=== PATIENT | female | born 1945 | race American Indian/Alaskan Native ===

== ENCOUNTER 2016-09-22 12:34 | Inpatient (IN) | payer MEDICARE, OTHER ==
[2016-09-22 12:41] VITALS: BMI 30.8
[2016-09-22] MEDS ORDERED: Piperacillin/Tazobact 3.375 gm 100 ML IVPB STA (12:56)
[2016-09-22] MEDS ORDERED: Vancomycin 1gm in NS 250ml 250 ML IVPB STA (12:56)
[2016-09-22 13:30] LABS: ADD MANUAL DIFF? NO
[2016-09-22 13:48] LABS: ALKALINE PHOSPHATASE 85 U/L (38-133); ALT/SGPT 24 U/L (7-56); AST/SGOT 23 U/L (15-39); BILIRUBIN,TOTAL 0.6 mg/dL (0.2-1.3); BLOOD UREA NITROGEN 10 mg/dL (7-21); CALCIUM 8.5 mg/dL (8.4-10.5); CARBON DIOXIDE 29 mmol/L (21-33); CHLORIDE 101 mmol/L (98-107); GFR AFRICAN-AMERICAN > 60; GLUCOSE,RANDOM 106 mg/dL (70-110); POTASSIUM 3.3 mmol/L (3.6-5.0); SODIUM 136 mmol/L (132-148); TOTAL PROTEIN 6.8 g/dL (5.8-8.3)
[2016-09-22 13:50] LABS: BASO # 0.01 K/mm3 (0.0-2.0); BASO % 0.1 % (0.0-3.0); EOS % 0.4 % (1.5-5.0); GRAN # 7.07 (1.4-6.5); GRAN % 78.6 % (50.0-68.0); HEMATOCRIT 39.9 % (36.0-48.0); LYMPH # 1.1 (1.2-3.4); LYMPH % 12.2 % (22.0-35.0); MEAN CORPUSCULAR HEMOGLOBIN 28.6 pg (25.0-35.0); MEAN CORPUSCULAR HGB CONC 34.1 g/dl (31.0-37.0); MEAN PLATELET VOLUME 10.6 fl (7.0-11.0); MONO # 0.8 (0.1-0.6); MONO % 8.7 % (1.0-6.0); PLATELET COUNT 333 10^3/uL (120.0-450.0); RED CELL DISTRIBUTION WIDTH 13.3 % (11.5-14.5)
[2016-09-22 13:55] LABS: INR 1.7 (0.93-1.08); PARTIAL THROMBOPLASTIN TIME 34.2 Seconds (23.7-30.8)
--- NOTE | 2016-09-22 14:28 | ED PDOC ---
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 Ulcer is on located on the right ankle. Patient is on Coumadin for previous dvt. Patient reports no fevers or any other complaints at this time. does not request pain meds in er. Symptom Onset: Gradual Symptom Course: Unchanged Activities at Onset: Rest Modifying Factors (Text): none Context: Home Associated Symptoms (Text): none Past Medical History - Provider Review Nursing Documentation Reviewed: Yes - Cardiac Hx Cardiac Disorders: Yes Hx Hypertension: Yes - Pulmonary Hx Respiratory Disorders: Yes Hx Chronic Obstructive Pulmonary Disease (COPD): Yes - Neurological Hx Neurological Disorder: Yes Hx Dizziness: Yes (HAD HEAD INJURY) - HEENT Hx HEENT Disorder: No - Renal Hx Renal Disorder: No - Endocrine/Metabolic Hx Endocrine Disorders: No - Hematological/Oncological Hx Blood Transfusions: No Hx Blood Transfusion Reaction: No - Integumentary Hx Dermatological Disorder: Yes (NH WOUND TO RIGHT MALLEOLAR AREA.SKIN DARKENING.EDEMA PAIN,RED) - Musculoskeletal/Rheumatological Hx Musculoskeletal Disorders: Yes Hx Falls: Yes - Gastrointestinal Hx Gastrointestinal Disorders: No - Genitourinary/Gynecological Hx Genitourinary Disorders: Yes (ECTOPIC PRENANCY) - Psychiatric Hx Psychophysiologic Disorder: No Hx Substance Use: No - Anesthesia Hx Anesthesia Reactions: No Hx Malignant Hyperthermia: No Family/Social History - Physician Review Nursing Documentation Reviewed: Yes Family/Social History: No Known Family HX Smoking Status: Former Smoker Hx Alcohol Use: No Hx Substance Use: No Allergies/Home Meds Allergies/Adverse Reactions: Allergies No Known Allergies Allergy (Verified 09/22/16 12:41) Home Medications: Home Meds Medication Instructions Recorded Confirmed Valsartan/Hydrochlorothiazide 1 each PO DAILY 03/27/16 09/22/16 [Diovan Hct 320-25 mg Tablet] Warfarin [Coumadin] 5 mg PO DAILY 03/27/16 09/22/16 Furosemide [Lasix] 0 mg PO DAILY 09/22/16 09/22/16 Review of Systems - Physician Review All systems were reviewed & negative as marked: Yes - Review of Systems Constitutional: absent: Fevers Respiratory: absent: SOB Skin: Ulcer Physical Exam Vital Signs Reviewed: Yes Vital Signs Temp Pulse Resp BP Pulse Ox 09/22/16 13:41 79 18 115/69 96 09/22/16 12:41 98.2 F 87 16 117/72 95 Temperature: Afebrile Blood Pressure: Normal Pulse: Regular Respiratory Rate: Normal Appearance: Positive for: Well-Appearing, Non-Toxic, Comfortable Pain Distress: None Mental Status: Positive for: Alert and Oriented X 3 - Systems Exam Head: Present: Atraumatic, Normocephalic Pupils: Present: PERRL Extroacular Muscles: Present: EOMI Conjunctiva: Present: Normal Mouth: Present: Moist Mucous Membranes Neck: Present: Normal Range of Motion Respiratory/Chest: Present: Clear to Auscultation, Good Air Exchange. No: Respiratory Distress, Accessory Muscle Use Cardiovascular: Present: Regular Rate and Rhythm, Normal S1, S2. No: Murmurs Abdomen: Present: Normal Bowel Sounds. No: Tenderness, Distention, Peritoneal Signs Upper Extremity: Present: Normal Inspection. No: Cyanosis, Edema Lower Extremity: Present: Swelling, Other ((+)diminished pulse 1+ dp). No: Edema Neurological: Present: GCS=15, CN II-XII Intact, Speech Normal Skin: Present: Other (3 cm ulcer on right ankle with purulent discharge ) Psychiatric: Present: Alert, Oriented x 3, Normal Insight, Normal Concentration Medical Decision Making ED Course and Treatment: 09/22/16 14:26 Impression: 71 year old female with worsening infected ulcer on right ankle. Differential Diagnosis included but are not limited to: infected ulcer r/o osteo. pt with known h/o of chronic pvd, and dvt on warfarin. in er, leg swollen with ulcer to right ankle. Plan: -- Radiology right ankle -- Labs -- Vancomycin, Zosyn -- Reassess and disposition Progress Notes: XRay of right ankle: Creator : Jose Fuller MD IMPRESSION: Normal right ankle radiographs. case discussed with dr fuentes accepts for iv antibiotics. - Lab Interpretations Lab Results: 09/22/16 13:20 09/22/16 13:20 Lab Results 09/22/16 13:20: WBC 9.0, RBC 4.75, Hgb 13.6, Hct 39.9, MCV 84.0, MCH 28.6, MCHC 34.1, RDW 13.3, Plt Count 333, MPV 10.6, Gran % 78.6 H, Lymph % (Auto) 12.2 L, Elk % (Auto) 8.7 H, Eos % (Auto) 0.4 L, Baso % (Auto) 0.1, Gran # 7.07 H, Lymph # 1.1 L, Elk # 0.8 H, Eos # 0.0, Baso # 0.01, ESR 10, PT 18.4 H, INR 1.70 H, APTT 34.2 H, Sodium 136, Potassium 3.3 L, Chloride 101, Carbon Dioxide 29, Anion Gap 9 L, BUN 10, Creatinine 1.0, Est GFR ( Amer) > 60, Est GFR (Non-Af Amer) 55, Random Glucose 106, Calcium 8.5, Total Bilirubin 0.6, AST 23, ALT 24, Alkaline Phosphatase 85, C-React Prot High Sens 9.20 H, Total Protein 6.8, Albumin 3.4, Globulin 3.4, Albumin/Globulin Ratio 1.0 L - RAD Interpretation Radiology Orders: 09/22/16 12:56 ANKLE RIGHT 3 VIEWS ROUTINE [RAD] Stat - Medication Orders Current Medication Orders: Enoxaparin Sodium (Lovenox) 70 mg SC HS ELISEO PRN Reason: Protocol Last Admin: 09/22/16 21:17 Dose: Home Med (Home Med) 1 unit OD ACB ELISEO Meropenem 1g/NS 100mL IVPB (Meropenem 1g/Ns 100ml Ivpb) 100 mls @ 100 mls/hr IVPB Q12H ELISEO PRN Reason: Protocol Stop: 10/02/16 06:01 Last Admin: 09/23/16 05:44 Dose: 100 MLS/HR eMAR Start Stop Document 09/23/16 05:44 KTB (Rec: 09/23/16 05:45 KTB [id number]) Intravenous Solution Start Date 09/23/16 Start Time 05:44 End Date 09/23/16 End time 06:28 Total Infusion Time 44 Vancomycin HCl (Vancomycin 1gm) 250 mls @ 167 mls/hr IVPB Q12H ELISEO PRN Reason: Protocol Stop: 10/01/16 05:31 Last Admin: 09/23/16 06:26 Dose: 167 MLS/HR eMAR Start Stop Document 09/23/16 06:26 KTB (Rec: 09/23/16 06:27 KTB [id number]) Intravenous Solution Start Date 09/23/16 Start Time 06:27 End Date 09/23/16 End time 07:57 Total Infusion Time 90 Sodium Chloride (Sodium Chloride 0.45%) 1,000 mls @ 80 mls/hr IV .[id number] ELISEO Stop: 09/25/16 12:00 Last Admin: 09/23/16 09:50 Dose: 80 MLS/HR eMAR Start Stop Document 09/23/16 09:50 RV (Rec: 09/23/16 09:50 RV [id number]) Intravenous Solution Start Date 09/23/16 Start Time 09:50 Potassium Chloride (K-Dur 20 Meq Er Tab) 20 meq PO 0800 ELISEO Last Admin: 09/23/16 09:49 Dose: 20 MEQ Valsartan (Diovan) 320 mg PO DAILY ELISEO Last Admin: 09/23/16 09:49 Dose: 320 MG Discontinued Medications Enoxaparin Sodium (Lovenox) 70 mg SC Q24H ELISEO PRN Reason: Protocol Last Admin: 09/22/16 20:18 Dose: 70 MG Subcutaneous Administrations Document 09/22/16 20:18 KTB (Rec: 09/22/16 20:20 KTB [id number]) Injection Site MAR Injection Site Left Abdomen Charges for Administration # of Subcutaneous Administrations 1 Piperacillin Sod/Tazobactam Sod (Zosyn 3.375 In Ns 100ml) 100 mls @ 200 mls/hr IVPB STAT STA PRN Reason: Protocol Stop: 09/22/16 13:25 Last Admin: 09/22/16 13:25 Dose: 200 MLS/HR eMAR Start Stop Document 09/22/16 13:25 EQ (Rec: 09/22/16 13:35 EQ [facility] [id number]) Intravenous Solution Start Date 09/22/16 Start Time 13:25 Vancomycin HCl (Vancomycin 1gm) 250 mls @ 167 mls/hr IVPB STAT STA PRN Reason: Protocol Stop: 09/22/16 14:25 Last Admin: 09/22/16 14:20 Dose: 167 MLS/HR eMAR Start Stop Document 09/22/16 14:20 EQ (Rec: 09/22/16 14:43 EQ [facility] [id number]) Intravenous Solution Start Date 09/22/16 Start Time 14:20 Pneumococcal Polyvalent Vaccine (Pneumovax 23 Vaccine) 0.5 ml IM .ONCE ONE Stop: 09/22/16 15:56 Last Admin: 09/23/16 05:50 Dose: Comments: had < 5trs ago - Sravaniibe Statement The provider has reviewed the documentation as recorded by the Capo Fuentes training under Deric Navas All medical record entries made by the Capo were at my direction and personally dictated by me. I have reviewed the chart and agree that the record accurately reflects my personal performance of the history, physical exam, medical decision making, and the department course for this patient. I have also personally directed, reviewed, and agree with the discharge instructions and disposition. Disposition/Present on Arrival - Present on Arrival Any Indicators Present on Arrival: No History of DVT/PE: No History of Uncontrolled Diabetes: No Urinary Catheter: No History of Decub. Ulcer: No History Surgical Site Infection Following: None - Disposition Have Diagnosis and Disposition been Completed?: Yes Diagnosis: Peripheral vascular disease, Infected ulcer of skin Disposition: HOSPITALIZED Disposition Time: 03:00 Condition: FAIR
--- NOTE | 2016-09-22 14:56 | RAD ---
PROCEDURE: Right Ankle Radiographs. HISTORY: ankle ulcer COMPARISON: None FINDINGS: BONES: Normal. No fracture. JOINTS: Normal. No osteoarthritis. Ankle mortise maintained. Talar dome intact SOFT TISSUES: Normal. OTHER FINDINGS: None. IMPRESSION: Normal right ankle radiographs.
[2016-09-22 15:20] LABS: ERYTHROCYTE SEDIMENTATION RATE 10 mm/hr (0.0-20.0)
[2016-09-22] MEDS ORDERED: Pneumococcal 23-Valent Vaccine IM ONE (15:55)
[2016-09-22] MEDS: Potassium Chloride 20 mEq ER Tab PO SCH (17:15)
--- NOTE | 2016-09-22 17:15 | US ---
HISTORY: Leg pain and swelling. Evaluate for DVT PHYSICIAN(S): Silver Dennis MD. TECHNIQUE: Duplex sonography and color-flow Doppler with graded compression were used to evaluate the deep venous systems of both lower extremities. The exam is limited by edema. FINDINGS: The visualized deep venous systems of both lower extremities are sonographically normal and compressible. Normal wave forms and augmentation are seen. There is no sonographic evidence for deep venous thrombosis in the visualized segments of both lower extremities. IMPRESSION: No sonographic evidence for deep venous thrombosis in the visualized segments of both lower extremities.
[2016-09-22] MEDS ORDERED: Enoxaparin 80 mg Syringe SC SCH (19:00)
[2016-09-22] MEDS ORDERED: Enoxaparin 80 mg Syringe SC ONE (20:00)
[2016-09-22] MEDS: Enoxaparin 80 mg Syringe SC SCH (21:17)
[2016-09-23] MEDS: Meropenem 1g/NS 100mL IVPB 100 ML IVPB SCH ×2 (05:44→17:19)
[2016-09-23] MEDS: Vancomycin 1gm in NS 250ml 250 ML IVPB SCH ×2 (06:26→16:48)
[2016-09-23 07:14] LABS: ADD MANUAL DIFF? NO
[2016-09-23 07:25] LABS: BASO # 0.01 K/mm3 (0.0-2.0); BASO % 0.1 % (0.0-3.0); EOS # 0.1 (0.0-0.7); EOS % 0.9 % (1.5-5.0); GRAN # 5.55 (1.4-6.5); HEMATOCRIT 39.9 % (36.0-48.0); LYMPH # 0.7 (1.2-3.4); LYMPH % 10.3 % (22.0-35.0); MEAN CELL VOLUME 84.4 fL (80.0-105.0); MEAN CORPUSCULAR HEMOGLOBIN 28.8 pg (25.0-35.0); MEAN CORPUSCULAR HGB CONC 34.1 g/dl (31.0-37.0); MEAN PLATELET VOLUME 10.7 fl (7.0-11.0); MONO # 0.7 (0.1-0.6); MONO % 9.7 % (1.0-6.0); PLATELET COUNT 306 10^3/uL (120.0-450.0); RED CELL DISTRIBUTION WIDTH 13.4 % (11.5-14.5)
[2016-09-23 07:40] LABS: ALKALINE PHOSPHATASE 69 U/L (38-133); ALT/SGPT 33 U/L (7-56); AST/SGOT 19 U/L (15-39); BILIRUBIN,TOTAL 0.6 mg/dL (0.2-1.3); BLOOD UREA NITROGEN 8 mg/dL (7-21); CALCIUM 8.5 mg/dL (8.4-10.5); CARBON DIOXIDE 30 mmol/L (21-33); CHLORIDE 104 mmol/L (98-107); GFR AFRICAN-AMERICAN > 60; GLUCOSE,RANDOM 93 mg/dL (70-110); POTASSIUM 3.8 mmol/L (3.6-5.0); SODIUM 141 mmol/L (132-148); TOTAL PROTEIN 6.5 g/dL (5.8-8.3)
--- NOTE | 2016-09-23 09:28 | US ---
PROCEDURE: Lower extremity KUMAR exam HISTORY: Severe peripheral vascular disease. Nonhealing ulcer right lateral ankle. Previous right SFA stent in March 2016 PHYSICIAN(S): Silver Dennis MD. FINDINGS: The right resting ABIs severely abnormal, 0.44. The left resting KUMAR is moderately abnormal, 0.70. The brachial systolic pressures are symmetric. The high thigh pressures and waveforms are relatively normal. The right calf PVR waveform is severely blunted. There is a 77 mm gradient across the right knee. This is consistent with right SFA and/ popliteal occlusive disease. The right SFA stent is likely occluded. The right distal waveforms are essentially flat There is a 90 mm gradient across the left knee. The left calf PVR waveform does not augment. This is consistent with left SFA, popliteal, and or trifurcation disease. The left ankle and metatarsal waveforms are moderately blunted but pulsatile IMPRESSION: 1. Severely abnormal right KUMAR at rest. 2. Occluded right SFA/popliteal stent. The right distal waveforms are essentially flat
--- NOTE | 2016-09-23 09:45 | HP ---
The patient is a 71-year-old black female with history of COPD, tobacco abuse, peripheral vascular di sease. The patient was being seen by Dr. Ya for a right lateral malleolar ulcer. She was doing well. She also has history of hypertension and history of chronic atrial fibrillation. She was on p .o. antibiotics in outpatient, going to the wound care clinic when she developed a nonhealing large u lceration of the right lateral malleolus with possible osteomyelitis, and admitted to the hospital fo r IV antibiotics and workup. PHYSICAL EXAMINATION: GENERAL: Shows a well-developed, well-nourished black female in no apparent distress. HEENT: Essentially within normal limits. HEART: Regular sinus rhythm. No S3, no murmurs. CHEST: Showed decreased breath sounds bilaterally. No wheezing, rhonchi, or rales. ABDOMEN: Benign. EXTREMITIES: Without cyanosis, clubbing, or edema. There are decreased pulsations bilaterally, and the patient has a large, greater than 5-cm shallow ulceration, of the right lateral malleolus with ex udate. There is no cellulitis and no swelling of the legs. NEUROLOGIC: Grossly intact. IMPRESSION: Peripheral vascular disease, chronic atrial fibrillation on Coumadin, hypertension, late ral malleolar ulcer, possible osteomyelitis. Terrance Main MD cc: [id number] TT: 09/23/2016 09:44:22 jn
[2016-09-23] MEDS: Potassium Chloride 20 mEq ER Tab PO SCH (09:49)
[2016-09-23] MEDS: Sodium Chloride 0.45% 1,000 ML IV SCH (09:50)
--- NOTE | 2016-09-23 10:41 | CON ---
DATE: 09/23/2016 CHIEF COMPLAINT/HISTORY OF PRESENT ILLNESS: This is an alert, functional 71- year-old black female with a deteriorating ischemic ulceration on the lateral aspect of the right malleolus. I know the patient from the Fall of 2016. The ulcer was present but smaller, and at that time she underwent an arteriogram with placement of a right SFA/popliteal stent. There was only 1-vessel runoff. Her cardiovascular risk factors include smoking and hypertension. She has been followed in the wound care center by Dr. Ya. Unfortunately she continued to smoke. Her pulse exam on the right demonstrates a palpable but somewhat weak right femoral pulse. The right popliteal and distal pulses are not palpable. Her KUMAR /PVR exam demonstrates a severely abnormal right KUMAR, 0.44. There is a significant gradient across the right knee, and the right calf, ankle, and metatarsal waveforms were essentially flat. This is consistent with occlusion of the distal right SFA/popliteal stent. RECOMMENDATIONS: The endovascular intervention in 03/2016, has had very limited durability. An arteriogram will be performed, and attempt at recanalization of the occluded segments if possible. Another alternative would be a right femoral-posterior tibial bypass, though this would involve greater morbidity and/or mortality. Both options were discussed with the patient. She understands the risks and wishes to proceed. Silver Dennis MD cc: [id number] TT: 09/23/2016 10:40:36 Confirmation # [id number] Dictation # [id number] jn MTDD
[2016-09-23] MEDS: Oxycodone/Acetaminophen 2.5/325 mg Tab PO PRN ×2 (13:17→20:29)
--- NOTE | 2016-09-23 15:25 | CON ---
DATE: 09/23/2016 The patient seen in room 361, bed 2. CHIEF COMPLAINT: Right ankle ulcer times several days. HISTORY OF PRESENT ILLNESS: A 71-year-old female known to me from previous admissions with a history of peripheral vascular disease, history of right ankle ulcer and osteomyelitis in the past, was greer judith and a history of DVT of the left lower extremity, history of chronic obstructive lung disease, wh o is admitted now with a large ulcer, an infected ulcer on the right lateral ankle. REVIEW OF SYSTEMS: Reveals the patient has no fevers, no chills, no chest pain, no hemoptysis. PAST MEDICAL HISTORY: Significant for the right lateral malleolar right ankle ulcer and osteomyeliti s and peripheral vascular disease, hypertension, history of a left lower extremity DVT, history of ch ronic obstructive lung disease and history of patient being on Coumadin, a long time smoker. PAST SURGICAL HISTORY: Significant for an ectopic . ALLERGIES: The patient has no known allergies. MEDICATIONS: Reviewed. PHYSICAL EXAMINATION: VITAL SIGNS: Temperature is 97, blood pressure is 102/60, respiratory rate of 20, heart rate of 75. HEENT: Unremarkable. NECK: Supple. LUNGS: Have decreased breath sounds. HEART: Normal S1, S2. ABDOMEN: Soft, nontender, no organomegaly, no rebound, no guarding, no masses. EXTREMITIES: The ankle shows a large sized ulcer, approximately 7-8 cm in diameter, deep with erythe ma and ulcers are intact. LABORATORY EXAMINATION: Reviewed. Reveals a white count of 7, hemoglobin of 13, platelets of 306. Sed rate is 16. Coagulation is noted. BUN of 8, creatinine of 0.9. IMAGING: Reveals the patient had an ultrasound, severely abnormal right KUMAR at rest, occluded right SFA and popliteal stent, right distal waveforms are essentially flat, read by Dr. Silver Dennis. Emergency Room chart is reviewed. Consultation with Dr. Silver Dennis is reviewed. The venous Doppler s are negative and endovascular intervention in 03/2016 and arteriogram will be performed according t o Dr. Silver Dennis. Another alternative would be a right femoral posterior tibial bypass. Dr. Rachelle johnson's history and physical examination is reviewed. He states the patient has peripheral vascular di sease, chronic atrial fibrillation on Coumadin, hypertension, lateral malleolar ulcer, possible osteo myelitis. ASSESSMENT AND PLAN: A 71-year-old female with severe peripheral arterial disease, hypertension, his tory of deep venous thrombosis of the left lower extremity, history of atrial fibrillation on Coumadi n, chronic obstructive pulmonary disease and ectopic . Now with right ankle ulcer, infected , with severe peripheral artery disease with a gram-negative tiffanie and corynebacterium species from the culture of the ankle. Blood cultures are negative. We will treat the patient with vancomycin and m eropenem and pending further culture results and imaging to rule out underlying osteomyelitis and lexa l follow closely with you. Byron Corbin MD cc: [id number] TT: 09/23/2016 15:24:30 Confirmation # [id number] Dictation # [id number] en
[2016-09-23] MEDS: Enoxaparin 80 mg Syringe SC SCH (21:29)
[2016-09-24] MEDS: Sodium Chloride 0.45% 1,000 ML IV SCH ×3 (04:57→22:45)
[2016-09-24] MEDS: Meropenem 1g/NS 100mL IVPB 100 ML IVPB SCH ×3 (04:59→18:30)
[2016-09-24] MEDS: Vancomycin 1gm in NS 250ml 250 ML IVPB SCH ×2 (05:29→19:57)
--- NOTE | 2016-09-24 09:04 | PN ---
DATE: 09/24/2016 A 71-year-old black female admitted to the hospital with a right lateral malleolar ulcer, nonhealing, possible osteomyelitis, for IV antibiotics. Evaluation included evaluation by Dr. Silver Dennis with a Doppler. Found to have a blockage of the right lower extremity. He is performing an arteriogram i n attempt to recanalize the occluded segments if possible. He also is considering a right femoral po sterior tibial bypass. However, it is more invasive. The patient has a history of an endovascular i ntervention in 03/2016, which has deteriorated. The ABIs are severely abnormal on the right at 0.44 and significant across the right knee and the right calf, ankle and metatarsal waveforms are es sentially flat consistent with occlusion of the distal right SFA, popliteal stent. The patient is on IV antibiotics, wound care and elevation. For further evaluation and possible intervention. Terrance Main MD cc: [id number] TT: 09/24/2016 09:03:03 Confirmation # [id number] Dictation # [id number] en
[2016-09-24] MEDS: Home Med 1 UNIT OD SCH (09:51)
[2016-09-24] MEDS: Potassium Chloride 20 mEq ER Tab PO SCH (09:51)
[2016-09-24] MEDS ORDERED: Iodixanol 320 mg/ml 150 ml Bottle IV ONE (10:13)
[2016-09-24] MEDS ORDERED: Iodixanol 320 MG/ML 200 ML BOTTLE IV ONE (10:13)
--- NOTE | 2016-09-24 10:44 | PN ---
DATE: 09/24/2016 The patient is in bed in no acute distress, nontoxic. On exam, temperature is 98, blood pressure is 120/60, respiratory rate of 20, heart rate of 87. EXAMINATION OF HENT: Unremarkable. NECK: Supple. LUNGS: Have decreased breath sounds. HEART EXAMINATION: Normal S1, S2. ABDOMINAL EXAMINATION: Soft, nontender. Examination of the ankles has not changed. Large ulcer. LABORATORY EXAMINATION: Reveals a white count is 7, hemoglobin of 13. Sed rate is 16. Coagulation is noted in a BUN of 8, creatinine of 0.9. Procalcitonin is less than 0.05. Ankle culture is Entero bacter cloacae and Corynebacterium species. Enterobacter is pansensitive. Sensitive to Cipro, sensi tive to cefepime, and ceftriaxone. It is resistant to cefazolin. Corynebacterium has no sensitivity . Review of the orders reveals the patient to be on meropenem and vancomycin. Dr. Main's note is reviewed. ASSESSMENT AND PLAN: This is a 71-year-old female with severe peripheral arterial disease, hypertens ion, history of deep venous thrombosis, lower extremity; history of atrial fibrillation on Coumadin, chronic obstructive lung disease, history of ectopic . Admitted in this admission with a la rge right ankle ulcer which is infected with Enterobacter cloacae and Corynebacterium, with poor vasc ular supply, severe arterial disease, and currently on vancomycin and meropenem. Vascular consultati on by Dr. Silver Dennis is reviewed. Will follow closely with you. Byron Corbin MD cc: [id number] TT: 09/24/2016 10:43:20 Confirmation # [id number] Dictation # [id number] brenda
[2016-09-24] MEDS ORDERED: Lidocaine 2% Inj (20ml) ONE (10:58)
[2016-09-24] MEDS ORDERED: Nitroglycerin 50mg in D5W 250 ML IV ONE (10:59)
[2016-09-24] MEDS ORDERED: Midazolam 2 MG/2 ML VIAL ONE ×2 (12:01→12:19)
--- NOTE | 2016-09-24 12:13 | CP.PCM.CON ---
<Lon Arias - Last Filed: 09/24/16 12:08> History of Present Illness - History of Present Illness History of Present Illness: 70 year old female patient with PMHx of HTN, peripheral vascular disease was seen at bedside this morning after request for podiatry consultation. Patient is well known to Dr. Felton MANN. Patient presents with non-healing ulceration to lateral aspect of Right ankle which was being treated at the woundcare clinic with improvement until 2 weeks ago when the wound started getting larger. Patient states that she had the ulceration for along time and the wound is not healing. Patient denies of any recent trauma to the wound. Patient denies of any N/V/F/C or SOB today Past Patient History - Past Social History Smoking Status: Former Smoker - CARDIAC Hx Cardiac Disorders: Yes Hx Hypertension: Yes - PULMONARY Hx Respiratory Disorders: Yes Hx Chronic Obstructive Pulmonary Disease (COPD): Yes - NEUROLOGICAL Hx Neurological Disorder: Yes Hx Dizziness: Yes (HAD HEAD INJURY) - HEENT Hx HEENT Problems: No - RENAL Hx Chronic Kidney Disease: No - ENDOCRINE/METABOLIC Hx Endocrine Disorders: No - HEMATOLOGICAL/ONCOLOGICAL Hx Blood Transfusions: No Hx Blood Transfusion Reaction: No - INTEGUMENTARY Hx Dermatological Problems: Yes (NH WOUND TO RIGHT MALLEOLAR AREA.SKIN DARKENING.EDEMA PAIN,RED) - MUSCULOSKELETAL/RHEUMATOLOGICAL Hx Musculoskeletal Disorders: Yes Hx Falls: Yes - GASTROINTESTINAL Hx Gastrointestinal Disorders: No - GENITOURINARY/GYNECOLOGICAL Hx Genitourinary Disorders: Yes (ECTOPIC PRENANCY) - PSYCHIATRIC Hx Psychophysiologic Disorder: No Hx Substance Use: No - SURGICAL HISTORY Hx Surgeries: (picc in and out) - ANESTHESIA Hx Anesthesia Reactions: No Hx Malignant Hyperthermia: No Meds Allergies/Adverse Reactions: Allergies Allergy/AdvReac Type Severity Reaction Status Date / Time No Known Allergies Allergy Verified 09/22/16 12:41 - Medications Medications: Current Medications Diphenhydramine HCl (Benadryl) 50 mg PO HS PRN PRN Reason: Insomnia Last Admin: 09/23/16 23:16 Dose: 50 mg Enoxaparin Sodium (Lovenox) 70 mg SC HS ELISEO PRN Reason: Protocol Last Admin: 09/23/16 21:29 Dose: 70 mg Home Med (Home Med) 1 unit OD ACB ELISEO Last Admin: 09/24/16 09:51 Dose: Not Given Meropenem 1g/NS 100mL IVPB (Meropenem 1g/Ns 100ml Ivpb) 100 mls @ 100 mls/hr IVPB Q12H ELISEO PRN Reason: Protocol Stop: 10/02/16 06:01 Last Admin: 09/24/16 04:59 Dose: 100 mls/hr Vancomycin HCl (Vancomycin 1gm) 250 mls @ 167 mls/hr IVPB Q12H ELISEO PRN Reason: Protocol Stop: 10/01/16 05:31 Last Admin: 09/24/16 05:29 Dose: 167 mls/hr Sodium Chloride (Sodium Chloride 0.45%) 1,000 mls @ 80 mls/hr IV .[id number] [facility] Stop: 09/25/16 12:00 Last Admin: 09/24/16 09:52 Dose: 80 mls/hr Oxycodone/Acetaminophen (Percocet 2.5/325 Mg Tab) 1 tab PO Q4H PRN PRN Reason: Pain, moderate (4-7) Last Admin: 09/23/16 20:29 Dose: 1 tab Potassium Chloride (K-Dur 20 Meq Er Tab) 20 meq PO 0800 [facility] Last Admin: 09/24/16 09:51 Dose: 20 meq Valsartan (Diovan) 320 mg PO DAILY [facility] Last Admin: 09/24/16 09:51 Dose: 320 mg Physical Exam - Constitutional Appears: Well, Non-toxic, No Acute Distress - Extremities Exam Additional comments: Additional comments: Right lower extremity exam DERM: Open ulceration noted to lateral aspect of right ankle measuring 7cm x 5cm x 0.4cm with 100% fibrotic base. Serous drainage is noted from the wound. Necrotic eschar noted to wound margins with 0.2cm thickness. Mild erythema noted around the wound less than 2 cm. No probe to bone VASC: Non-palpable DP and PT, AUTOMATIC VULCANIZING OPERATOR is less than 3 seconds to all digits NEURO: Gross sensation intact ORTHO: Pain on palpation to right foot involving ankle - Neurological Exam Neurological exam: Alert, Oriented x3 - Psychiatric Exam Psychiatric exam: Normal Affect, Normal Mood - Skin Skin Exam: Normal Color, Warm Results - Vital Signs Recent Vital Signs: Last Vital Signs Temp 97.5 F L 09/24/16 08:00 Pulse 85 09/24/16 08:00 Resp 20 09/24/16 08:00 BP 128/64 09/24/16 08:00 Pulse Ox 97 09/24/16 08:00 - Labs Result Diagrams: 09/23/16 07:00 09/23/16 07:00 Labs: Laboratory Results - last 24 hr 09/23/16 06:30 Procalcitonin < 0.05 L Assessment & Plan - Assessment and Plan (Free Text) Assessment: 70 year old female patient with PMHx of HTN, PVD, LLE DVT presents with open ulceration to right ankle Plan: Patient was seen, evaluated with Dr. Ya Labs and vitals reviewed Iodosorb ordered to be applied to right ankle Dressing applied to right ankle using Betadine, 4x4 and kerlix Podiatry will continue to follow In-house <Pedro Pablo Ya - Last Filed: 09/24/16 17:17> Meds - Medications Medications: Current Medications Cadexomer Iodine (Iodosorb 0.9%) 0 ea TOP DAILY ELISEO Diphenhydramine HCl (Benadryl) 50 mg PO HS PRN PRN Reason: Insomnia Last Admin: 09/23/16 23:16 Dose: 50 mg Enoxaparin Sodium (Lovenox) 70 mg SC HS ELISEO PRN Reason: Protocol Last Admin: 09/23/16 21:29 Dose: 70 mg Home Med (Home Med) 1 unit OD ACB ELISEO Last Admin: 09/24/16 09:51 Dose: Not Given Meropenem 1g/NS 100mL IVPB (Meropenem 1g/Ns 100ml Ivpb) 100 mls @ 100 mls/hr IVPB Q12H ELISEO PRN Reason: Protocol Stop: 10/02/16 06:01 Last Admin: 09/24/16 04:59 Dose: 100 mls/hr Vancomycin HCl (Vancomycin 1gm) 250 mls @ 167 mls/hr IVPB Q12H ELISEO PRN Reason: Protocol Stop: 10/01/16 05:31 Last Admin: 09/24/16 05:29 Dose: 167 mls/hr Sodium Chloride (Sodium Chloride 0.45%) 1,000 mls @ 80 mls/hr IV .[id number] [facility] Stop: 09/25/16 12:00 Last Admin: 09/24/16 09:52 Dose: 80 mls/hr Oxycodone/Acetaminophen (Percocet 2.5/325 Mg Tab) 1 tab PO Q4H PRN PRN Reason: Pain, moderate (4-7) Last Admin: 09/23/16 20:29 Dose: 1 tab Potassium Chloride (K-Dur 20 Meq Er Tab) 20 meq PO 0800 [facility] Last Admin: 09/24/16 09:51 Dose: 20 meq Valsartan (Diovan) 320 mg PO DAILY [facility] Last Admin: 09/24/16 09:51 Dose: 320 mg Results - Vital Signs Recent Vital Signs: Last Vital Signs Temp 97.5 F L 09/24/16 14:10 Pulse 82 09/24/16 14:10 Resp 14 09/24/16 14:10 BP 143/76 09/24/16 14:10 Pulse Ox 97 09/24/16 08:00 - Labs Result Diagrams: 09/23/16 07:00 09/23/16 07:00 Labs: Laboratory Results - last 24 hr 09/24/16 16:40 Vancomycin Trough 13.6 H Attending/Attestation - Attestation I have personally seen and examined this patient.: Yes I have fully participated in the care of the patient.: Yes I have reviewed all pertinent clinical information: Yes
--- NOTE | 2016-09-24 13:55 | VASCULAR ---
PROCEDURE: 1. Abdominal aortogram and bilateral lower extremity runoff with right selective views. 2. Distal right SFA and right popliteal artery CSI atherectomy and drug-eluting balloon angioplasty 3. Proximal right posterior tibial artery angioplasty HISTORY: Severe peripheral vascular disease. Smoker. Previous right SFA angioplasty and stent in 2015. Nonhealing ischemic right lateral heel ulcer. Evaluate for restenosis. PHYSICIAN(S): Silver Dennis M.D. TECHNIQUE: The relative risks and indications of the procedure were explained to the patient and consent obtained. The patient was hydrated prior to the procedure and the appropriate labs drawn. The patient was placed supine on the arteriogram table and the left groin prepped and draped in the usual sterile fashion. Conscious sedation and monitoring were provided throughout the procedure by a nurse. Via a left common femoral artery approach, a 5 [place]raini sheath was placed in the left groin. Through the sheath and over a guidewire, a 5 [place]i flush catheter was placed in the abdominal aorta at the level of the renal arteries and a PA DSA abdominal aortogram performed. The catheter was pulled down to the aortic bifurcation and bilateral oblique DSA pelvic arteriograms performed. Overlapping bilateral lower extremity DSA arteriograms were obtained from the inguinal ligaments to the ankles. A 0.035 angled Glidewire was advanced over the bifurcation and placed in the mid right SFA. A 6 [place]raini 65 cm destination sheath was placed in the mid right SFA. Heparin 6000 units IV and nitroglycerin in 250 mcg aliquots were given. The re- stenosis in the distal right SFA and critical tandem stenoses in the terminal right SFA and popliteal arteries were crossed with angled glidewire and 5 [place]i catheter.. Exchange was made for a 0.017 support guidewire. CS I atherectomy of the distal right SFA stent, terminal right SFA stenosis and mid right popliteal artery stenosis was performed with a 2.0 mm yusra next the right popliteal artery was dilated with a 4 mm drug-eluting balloon. The distal right SFA and right SFA stent were dilated with a 5.0 mm drug-eluting balloon. The moderate to severe stenosis at the origin of the right posterior tibial artery was dilated with a 3.0 x 4 cm balloon. Completion angiograms were obtained. The sheath was removed hemostasis obtained with a Perclose device. The patient tolerated the procedure well. FINDINGS: There are single renal arteries bilaterally which are widely patent and normal in appearance. The nephrograms are symmetric in appearance. The infrarenal abdominal aorta is widely patent without a radiographically significant stenosis. The aortic bifurcation is widely patent. The common and external iliac arteries are normal in appearance without a significant stenosis. The internal iliac arteries are patent bilaterally. Right lower extremity: The right common femoral artery is patent. The right profunda femoral artery is patent. The right superficial femoral artery is patent proximally. The self expanding stent in the distal right SFA is patent with mild to moderate in stent restenosis. There is a critical stenosis just beyond the distal stent. Is a 2nd critical stenosis in the mid right popliteal artery. There is severe right trifurcation and tibial occlusive disease. There is single vessel runoff via the large and continuous right posterior tibial artery. There is a moderate stenosis of the right posterior tibial artery origin.. There is significant right pedal occlusive disease. The plantar arch is intact. The right dorsalis pedis artery does not opacify. IMPRESSION: 1.Successful distal right SFA atherectomy and drug-eluting balloon angioplasty. 2. Successful right popliteal artery atherectomy and drug-eluting balloon angioplasty. 3. Successful proximal right posterior tibial artery angioplasty. 4. Severe right tibial and pedal occlusive disease. There is I vessel runoff via the right posterior tibial artery.
--- NOTE | 2016-09-24 17:55 | PN ---
DATE: 09/24/2016 A 71-year-old female seen at bedside for followup evaluation and management of an arterial gangrenous right ankle ulceration. I spoke with Dr. Silver Dennis today as the patient had undergone angiogram w here increased lower extremity perfusion was obtained. In an effort to maximize healing, the patient was scheduled for excisional debridement on Tuesday at 7:30 a.m. with an application of skin graft. So, we will keep the patient n.p.o. Tuesday and perform the procedure at 7:30 a.m. . The patient will be seen and followed daily until discharge. Pedro Pablo Ya DPM cc: [id number] TT: 09/24/2016 17:54:32 Confirmation # [id number] Dictation # [id number] tn
[2016-09-24] MEDS: Enoxaparin 80 mg Syringe SC SCH (22:05)
[2016-09-25] MEDS: Meropenem 1g/NS 100mL IVPB 100 ML IVPB SCH ×2 (05:14→17:25)
[2016-09-25] MEDS: Vancomycin 1gm in NS 250ml 250 ML IVPB SCH ×2 (05:57→18:25)
[2016-09-25] MEDS: Potassium Chloride 20 mEq ER Tab PO SCH (08:08)
[2016-09-25] MEDS: Home Med 1 UNIT OD SCH (08:08)
--- NOTE | 2016-09-25 10:39 | PN ---
DATE: 09/25/2016 A 71-year-old white female admitted to the hospital with a right lateral malleolar ulceration. The p atient is status post history of stent in the past who is status post angiogram and revision of stent by Dr. Silver Dennis with angioplasty. The patient has good runoff, but only 1 vessel into the foot. The patient's plan is to continue IV antibiotics, debridement and possible grafting of the ulcer in the next 3-4 days. The patient is also admonished to stop smoking. She is otherwise appropriate. REVIEW OF SYSTEMS: Unremarkable today. The patient is awake and oriented x 3. Terrance Main MD cc: [id number] TT: 09/25/2016 10:38:27 Confirmation # [id number] Dictation # [id number] tn
[2016-09-25] MEDS: Sodium Chloride 0.45% 1,000 ML IV SCH (11:54)
--- NOTE | 2016-09-25 14:10 | PN ---
DATE: 09/25/2016 The patient is in bed in no acute distress. Was seen earlier today, no fevers, no chills, tolerating the antibiotics well. PHYSICAL EXAMINATION: VITAL SIGNS: Temperature is 98, blood pressure is 140/60, respiratory rate of 18. HEENT: Unremarkable. NECK: Supple. LUNGS: Have decreased breath sounds. HEART: Normal S1, S2. ABDOMEN: Soft. LABORATORY EXAMINATION: Reveals a white count of 7, hemoglobin of 13, platelets of 306. The analytical chemistry teacher luis reveal the BUN of 8, creatinine of 0.9. Procalcitonin is less than 0.05. Vancomycin trough of 13.6. Microbiology reveals the patient has Enterobacter cloacae and corynebacterium from the ankle c ultures and Enterobacter cloacae is pansensitive. Review of the orders reveals the patient to be on meropenem and vancomycin. Dr. Main's note is reviewed. ASSESSMENT AND PLAN: A 71-year-old female with severe peripheral artery disease, hypertension, histo ry of deep venous thrombosis lower extremity, atrial fibrillation, chronic obstructive lung disease, history of ectopic with a large right ankle ulcer infected with Enterobacter cloacae and co rynebacterium with severe peripheral arterial disease. Currently on vancomycin and meropenem. Await ing for further vascular input. Dr. Ya's note is reviewed. We will follow closely with you. Byron Corbin MD cc: [id number] TT: 09/25/2016 14:10:11 Confirmation # [id number] Dictation # [id number] tn
[2016-09-25] MEDS: Enoxaparin 80 mg Syringe SC SCH (22:04)
[2016-09-25] MEDS: Oxycodone/Acetaminophen 2.5/325 mg Tab PO PRN (22:57)
[2016-09-26] MEDS: Vancomycin 1gm in NS 250ml 250 ML IVPB SCH ×2 (04:41→19:21)
[2016-09-26] MEDS: Meropenem 1g/NS 100mL IVPB 100 ML IVPB SCH ×2 (06:26→20:33)
[2016-09-26 10:26] LABS: URINE APPEARANCE CLEAR (CLEAR); URINE BILIRUBIN NEGATIVE (NEGATIVE); URINE BLOOD NEGATIVE (NEGATIVE); URINE COLOR LIGHT YELLOW (YELLOW); URINE GLUCOSE (UA) NEGATIVE (NEGATIVE); URINE KETONE NEGATIVE (NEGATIVE); URINE LEUKOCYTE ESTERASE NEGATIVE Leu/uL (NEGATIVE); URINE PROTEIN NEGATIVE mg/dL (<30 mg/dL); URINE UROBILINOGEN 0.2 E.U./dL (<1 E.U./dL)
[2016-09-26 10:39] LABS: ADD MANUAL DIFF? NO
[2016-09-26 10:43] LABS: BASO # 0.02 K/mm3 (0.0-2.0); BASO % 0.2 % (0.0-3.0); EOS # 0.2 (0.0-0.7); EOS % 1.8 % (1.5-5.0); GRAN # 6.87 (1.4-6.5); GRAN % 81.3 % (50.0-68.0); HEMATOCRIT 38.4 % (36.0-48.0); LYMPH % 11.5 % (22.0-35.0); MEAN CELL VOLUME 84.2 fL (80.0-105.0); MEAN CORPUSCULAR HEMOGLOBIN 28.7 pg (25.0-35.0); MEAN CORPUSCULAR HGB CONC 34.1 g/dl (31.0-37.0); MEAN PLATELET VOLUME 10.3 fl (7.0-11.0); MONO # 0.4 (0.1-0.6); MONO % 5.2 % (1.0-6.0); PLATELET COUNT 237 10^3/uL (120.0-450.0); RED CELL DISTRIBUTION WIDTH 13.4 % (11.5-14.5); WHITE BLOOD COUNT 8.5 10^3/ul (4.5-11.0)
[2016-09-26] MEDS: Home Med 1 UNIT OD SCH (11:12)
[2016-09-26] MEDS: Potassium Chloride 20 mEq ER Tab PO SCH (11:13)
--- NOTE | 2016-09-26 11:19 | RAD ---
HISTORY: or tomorrow COMPARISON: Comparison chest 03/27/2016 TECHNIQUE: Chest PA and lateral FINDINGS: LUNGS: Lung neumann are hyperinflated with flattened diaphragms and increased retrosternal airspace. Findings likely represent sequela of emphysema with upper lobe predominance however underlying COPD not excluded. There appears to be bibasilar atelectasis and scarring changes with either small effusions or chronic pleural thickening. PLEURA: No pneumothorax apparent. CARDIOVASCULAR: Heart size within range of normal. OSSEOUS STRUCTURES: Mild multilevel degenerative spondylosis of the thoracic spine VISUALIZED UPPER ABDOMEN: Normal. OTHER FINDINGS: None. IMPRESSION: Lung neumann are hyperinflated with flattened diaphragms and increased retrosternal airspace. Findings likely represent sequela of emphysema with upper lobe predominance however underlying COPD not excluded. There appears to be bibasilar atelectasis and scarring changes with either small effusions or chronic pleural thickening.
[2016-09-26] MEDS: Albuterol-Ipratrop 3 mg / 0.5 (3 ml) UD IH SCH ×3 (11:36→19:47)
--- NOTE | 2016-09-26 17:15 | PN ---
DATE: 09/26/2016 The patient is in bed in no acute distress, nontoxic. PHYSICAL EXAMINATION: VITAL SIGNS: Temperature is 98, blood pressure is 150/80, respiratory rate of 18, heart rate of 101. HEENT: Unremarkable. NECK: Supple. LUNGS: Decreased breath sounds. HEART: Normal S1, S2. ABDOMEN: Soft, nontender. LABORATORY DATA: Reveals a white count of 8.5, hemoglobin of 13, platelets of 237. Chemistries reve al the BUN of 8, creatinine of 0.9. Urinalysis is noted. Vancomycin trough is 13.6. Microbiology r eveals the ankle cultures are positive for Enterobacter cloacae and corynebacterium; Enterobacter pascale acae is relatively sensitive. Chest x-ray from this morning is reviewed. ASSESSMENT AND PLAN: This is a 71-year-old female with severe peripheral artery disease, hypertensio n, history of deep venous thrombosis, atrial fibrillation, chronic obstructive lung disease, history of ectopic , had a large right ankle ulcer infected with Enterobacter cloacae and corynebac terium with severe peripheral arterial disease on vancomycin and meropenem. Awaiting for further vas cular and podiatric intervention. Byron Corbin MD cc: [id number] TT: 09/26/2016 17:14:23 Confirmation # [id number] Dictation # [id number] dn
--- NOTE | 2016-09-26 20:03 | CP.PCM.PN ---
Subjective - Date & Time of Evaluation Date of Evaluation: 09/26/16 Time of Evaluation: 20:02 - Subjective Subjective: # 22 angiocath was inserted in right forearm. Dx:Poor venous access. Objective - Vital Signs/Intake and Output Vital Signs (last 24 hours): Temp Pulse Resp BP Pulse Ox 98 F 83 17 151/82 H 97 09/26/16 00:00 09/26/16 00:00 09/26/16 00:00 09/26/16 00:00 09/26/16 00:00 - Medications Medications: Current Medications Albuterol/Ipratropium (Duoneb 3 Mg/0.5 Mg (3 Ml) Ud) 3 ml IH [id number] ELISEO Last Admin: 09/26/16 19:47 Dose: 3 ml Cadexomer Iodine (Iodosorb 0.9%) 0 ea TOP DAILY ELISEO Last Admin: 09/26/16 11:12 Dose: 1 applic Diphenhydramine HCl (Benadryl) 50 mg PO HS PRN PRN Reason: Insomnia Last Admin: 09/23/16 23:16 Dose: 50 mg Enoxaparin Sodium (Lovenox) 70 mg SC HS ELISEO PRN Reason: Protocol Last Admin: 09/25/16 22:04 Dose: 70 mg Home Med (Home Med) 1 unit OD ACB [facility] Last Admin: 09/26/16 11:12 Dose: Not Given Meropenem 1g/NS 100mL IVPB (Meropenem 1g/Ns 100ml Ivpb) 100 mls @ 100 mls/hr IVPB Q12H ELISEO PRN Reason: Protocol Stop: 10/02/16 06:01 Last Admin: 09/26/16 06:26 Dose: 100 mls/hr Vancomycin HCl (Vancomycin 1gm) 250 mls @ 167 mls/hr IVPB Q12H ELISEO PRN Reason: Protocol Stop: 10/01/16 05:31 Last Admin: 09/26/16 19:21 Dose: 167 mls/hr Oxycodone/Acetaminophen (Percocet 2.5/325 Mg Tab) 1 tab PO Q4H PRN PRN Reason: Pain, moderate (4-7) Last Admin: 09/25/16 22:57 Dose: 1 tab Potassium Chloride (K-Dur 20 Meq Er Tab) 20 meq PO 0800 [facility] Last Admin: 09/26/16 11:13 Dose: Not Given Valsartan (Diovan) 320 mg PO DAILY [facility] Last Admin: 09/26/16 10:44 Dose: 320 mg - Labs Labs: 09/26/16 10:35 09/23/16 07:00 PT 18.4 Seconds (9.9-11.8) H 09/22/16 13:20 INR 1.70 (0.93-1.08) H 09/22/16 13:20 APTT 34.2 Seconds (23.7-30.8) H 09/22/16 13:20
[2016-09-27] MEDS: Albuterol-Ipratrop 3 mg / 0.5 (3 ml) UD IH SCH ×5 (00:35→19:45)
[2016-09-27] MEDS: Vancomycin 1gm in NS 250ml 250 ML IVPB SCH ×2 (05:36→17:14)
[2016-09-27] MEDS ORDERED: Bupivacaine 0.5% Inj(30mL) ONE (07:15)
[2016-09-27] MEDS ORDERED: Lidocaine 2% Inj (20ml) ONE (07:15)
[2016-09-27] MEDS ORDERED: Sevoflurane - Inhalation Anesthetic Liq (250 ml) ONE (07:24)
[2016-09-27] MEDS ORDERED: Midazolam 2 MG/2 ML VIAL ONE (07:24)
[2016-09-27] MEDS ORDERED: Etomidate 20 mg/10ml Inj IV ONE (07:25)
--- NOTE | 2016-09-27 08:26 | PN ---
DATE: 09/25/2016 A 71-year-old female seen at bedside, status post 1 day angiogram and revision of stent, angioplasty of right lower extremity. The patient states she is having much less pain in her right ankle ulcer. LABORATORY FINDINGS: Reveal a white count of 7, hemoglobin of 13.6, hematocrit of 39.9, platelet count of 306 and an ESR of 16. Microbiology report of the right ankle ulceration reveals Enterobacter and corynebacterium species group. X-ray reports reveal no radiographic evidence of osteomyelitis at the malleoli. OBJECTIVE: Nonpalpable pedal pulses noted bilaterally, +2 nonpitting lower extremity edema noted bilaterally. There is a full thickness ulceration on the lateral right ankle that measures approximately 3.5 x 2.5 x 0.3. The base of the ulceration is primarily fibrotic and necrotic. There is no purulence to suggest underlying abscess formation. The wound does not probe to tendon or bone. ASSESSMENT: Arterial ulceration to the right lateral ankle. PLAN: The patient's wound was cleansed with normal sterile saline. We will apply Iodosorb cream and a dry sterile dressing daily. The patient is scheduled for excisional debridement by Armin on Tuesday with application of skin grafting. We will keep her n.p.o. Tuesday night. The surgery is scheduled for 7:30 a.m. Tuesday. Pedro Pablo Ya DPM cc: [id number] TT: 09/25/2016 11:25:55 Confirmation # [id number] Dictation # [id number] silvana ANTHONY
[2016-09-27] MEDS ORDERED: HYDROmorphone 0.5 mg/0.5 ml ISec IVP PRN (08:55)
[2016-09-27] MEDS ORDERED: Lactated Ringer's 1,000 ML IV SCH (09:00)
--- NOTE | 2016-09-27 09:15 | PN ---
DATE: 09/27/2016 SUBJECTIVE: A 71-year-old black female with peripheral vascular disease, status post stent, status p ost angioplasty by Dr. Silver Dennis, right lower leg/right lateral malleolar ulceration. The patient is willing to go to surgery today for debridement and possible grafting, status post procedure on he r leg. The patient also had some shortness of breath and some hypoxia last night. A chest x-ray did not show any acute condition. There was severe emphysema. The patient was treated with nebulizer t reatment and oxygen. Laboratory data did not reveal any evidence of a white count. 12-POINT REVIEW OF SYSTEMS: Remarkable only for shortness of breath and dyspnea on exertion, and citlalli n in the right ankle. PHYSICAL EXAMINATION: Otherwise, vital signs are stable. Ulceration looks improved. The patient is for debridement today and possible skin grafting. Terrance Main MD cc: [id number] TT: 09/27/2016 09:14:47 Confirmation # [id number] Dictation # [id number] mn
--- NOTE | 2016-09-27 09:26 | CARD ---
APPROVED REPORT EKG Measurement Heart [id number] <Conclusion> Normal sinus rhythm Left ventricular hypertrophy with repolarization abnormality Cannot rule out Septal infarct, age undetermined STTW changes c/w ischemia No change
--- NOTE | 2016-09-27 11:25 | OP ---
PROCEDURE DATE: 09/27/2016 INDICATIONS: A 71-year-old female has been seen in the wound center for several months for a slowly- resolving right arterial ankle ulceration. The ulceration had reached a point where it was 100% gran ular, then over the course of the last 2 weeks, significantly reversed direction, and last week, pres ented with necrotic gangrenous tissue. The patient was admitted. Arteriogram and arterioplasty were performed, and the patient will be brought into the operating room today to excisionally debride the necrotic gangrenous tissue and apply Integra skin graft. SURGEON: Pedro Pablo Ya DPM. PERSONAL SECURITY SPECIALIST: None. PREOPERATIVE DIAGNOSIS: Arterial gangrenous necrotic right lateral ankle ulceration. POSTOPERATIVE DIAGNOSIS: Arterial gangrenous necrotic right lateral ankle ulceration. PROCEDURE: Excisional debridement of necrotic gangrenous right ankle ulcer with Versajet hydro debri libertad, and application of Integra skin graft. PATHOLOGY: Necrotic gangrenous tissue. ANESTHESIA: Local with monitored anesthetic care. HEMOSTASIS: None used. ESTIMATED BLOOD LOSS: Minimal. MATERIALS USED: Integra skin graft, sterile Adaptic, sterile 4 x 4, sterile Kerlix, and Coban. INJECTABLES: 17 mL of a 1:1 ratio of 0.5% Marcaine plain and 2% lidocaine plain in an ankle block fa elizabeth. The patient tolerated the procedure well and was transferred from the operating room to the ecovery room with all vital signs stable. After a period of postoperative monitoring, the patient wi ll be brought back to her room to resume all preoperative medications. PROCEDURE IN DETAIL: The patient was brought into the operating room on her hospital bed and transfe rred to the operating room table where she was placed in the supine position. Following a period of IV sedation, the patient's foot was scrubbed, prepped, and draped in the usual aseptic manner, and a right ankle block was given consisting of 0.5% Marcaine plain and 2% lidocaine plain utilizing approx imately 17 mL of anesthesia. Attention was then directed to the right lateral ankle where there was a large approximately 5 x 5 x 0.03 cm ulceration that consisted of a fibrotic and necrotic, as well as gangrenous base. Utilizing a #15 blade, the wound was excisionally debrided of large fibrotic, gangrenous, and necrotic tissue. A TriPlayt hydro debriding tool was then used to excisionally irrigate the entire wound until there was noted to be pinpoint bleeding, especially around the periphery of the wound. At this point, an I ntegra skin graft was applied over the wound and stapled in place. The remaining edges of the redund ant skin graft was cut and removed from the operative field. The wound was then dressed with sterile Adaptic, sterile 4 x 4, sterile Kerlix, and Coban. The patient tolerated the procedure well and was transported from the operating room to the recovery room with all vital signs stable. We will keep the dressing intact and will not change the dressing for 1 week. The patient will be seen and followed daily. Pedro Pablo Ya DPM cc: [id number] TT: 09/27/2016 09:24:26 jn
[2016-09-27] MEDS: Oxycodone/Acetaminophen 2.5/325 mg Tab PO PRN ×2 (13:59→17:20)
[2016-09-27] MEDS: Potassium Chloride 20 mEq ER Tab PO SCH (13:59)
--- NOTE | 2016-09-27 16:20 | CP.PCM.PN ---
Subjective - Date & Time of Evaluation Date of Evaluation: 09/27/16 Time of Evaluation: 09:15 - Subjective Subjective: Patient is comfortable in bed, not in distress, no fevers, less pain in the right leg. Just had surgery today. Objective - Vital Signs/Intake and Output Vital Signs (last 24 hours): Temp Pulse Resp BP Pulse Ox 98 F 76 15 108/64 99 09/27/16 09:34 09/27/16 09:34 09/27/16 09:34 09/27/16 09:34 09/27/16 09:34 Intake and Output: 09/27/16 09/27/16 06:59 18:59 Intake Total 300 435 Balance 300 435 - Medications Medications: Current Medications Albuterol/Ipratropium (Duoneb 3 Mg/0.5 Mg (3 Ml) Ud) 3 ml IH [id number] ELISEO Last Admin: 09/27/16 15:47 Dose: 3 ml Cadexomer Iodine (Iodosorb 0.9%) 0 ea TOP DAILY ELISEO Last Admin: 09/26/16 11:12 Dose: 1 applic Diphenhydramine HCl (Benadryl) 50 mg PO HS PRN PRN Reason: Insomnia Last Admin: 09/23/16 23:16 Dose: 50 mg Enoxaparin Sodium (Lovenox) 70 mg SC HS ELISEO PRN Reason: Protocol Last Admin: 09/25/16 22:04 Dose: 70 mg Home Med (Home Med) 1 unit OD ACB ELISEO Meropenem 1g/NS 100mL IVPB (Meropenem 1g/Ns 100ml Ivpb) 100 mls @ 100 mls/hr IVPB Q12H ELISEO PRN Reason: Protocol Stop: 10/02/16 06:01 Last Admin: 09/26/16 20:33 Dose: 100 mls/hr Vancomycin HCl (Vancomycin 1gm) 250 mls @ 167 mls/hr IVPB Q12H ELISEO PRN Reason: Protocol Stop: 10/01/16 05:31 Last Admin: 09/27/16 05:36 Dose: 167 mls/hr Oxycodone/Acetaminophen (Percocet 2.5/325 Mg Tab) 1 tab PO Q4H PRN PRN Reason: Pain, moderate (4-7) Last Admin: 09/27/16 13:59 Dose: 1 tab Potassium Chloride (K-Dur 20 Meq Er Tab) 20 meq PO 0800 [facility] Last Admin: 09/27/16 13:59 Dose: 20 meq Valsartan (Diovan) 320 mg PO DAILY [facility] Last Admin: 09/26/16 10:44 Dose: 320 mg - Labs Labs: 09/26/16 10:35 09/23/16 07:00 PT 18.4 Seconds (9.9-11.8) H 09/22/16 13:20 INR 1.70 (0.93-1.08) H 09/22/16 13:20 APTT 34.2 Seconds (23.7-30.8) H 09/22/16 13:20 - Constitutional Appears: Non-toxic, No Acute Distress - Head Exam Head Exam: NORMAL INSPECTION - ENT Exam ENT Exam: Mucous Membranes Moist - Neck Exam Neck Exam: absent: Lymphadenopathy, Meningismus - Respiratory Exam Respiratory Exam: Decreased Breath Sounds - Cardiovascular Exam Cardiovascular Exam: +S1, +S2 - GI/Abdominal Exam GI & Abdominal Exam: Soft. absent: Tenderness - Extremities Exam Additional comments: right foot with dry dressings in place Assessment and Plan - Assessment and Plan (Free Text) Plan: Assessment Right lateral malleolus gangrenous ulcer with associated skin and skin structure infection, R/O osteomyelitis S/P debridement today severe peripheral vascular disease HTN history of DVT of the left lower extremity Plan continue Vancomycin and Merrem; follow up OR pathology, findings, and cultures Will follow up Podiatry recommendations
[2016-09-27] MEDS: Meropenem 1g/NS 100mL IVPB 100 ML IVPB SCH (17:13)
[2016-09-27] MEDS: Enoxaparin 80 mg Syringe SC SCH (21:27)
[2016-09-28] MEDS: Albuterol-Ipratrop 3 mg / 0.5 (3 ml) UD IH SCH ×7 (02:41→23:39)
[2016-09-28] MEDS: Meropenem 1g/NS 100mL IVPB 100 ML IVPB SCH ×2 (05:15→18:28)
[2016-09-28] MEDS: Vancomycin 1gm in NS 250ml 250 ML IVPB SCH ×2 (05:54→16:40)
[2016-09-28] MEDS ORDERED: Home Med 1 UNIT OD SCH (07:30)
[2016-09-28 07:46] VITALS: RESP 20
[2016-09-28] MEDS: Potassium Chloride 20 mEq ER Tab PO SCH (09:08)
[2016-09-28 12:01] LABS: ALB/GLOB RATIO 0.9 (1.1-1.8); ALKALINE PHOSPHATASE 55 U/L (38-133); ALT/SGPT 33 U/L (7-56); AST/SGOT 21 U/L (15-39); BILIRUBIN,TOTAL 0.6 mg/dL (0.2-1.3); BLOOD UREA NITROGEN 6 mg/dL (7-21); CARBON DIOXIDE 27 mmol/L (21-33); CHLORIDE 109 mmol/L (98-107); GFR AFRICAN-AMERICAN > 60; GLUCOSE,RANDOM 90 mg/dL (70-110); POTASSIUM 4.3 mmol/L (3.6-5.0); SODIUM 142 mmol/L (132-148)
[2016-09-28] MEDS ORDERED: Iohexol 350 MG/100 ML VIAL ONE (12:32)
--- NOTE | 2016-09-28 14:06 | CT ---
PROCEDURE: CT Chest with contrast HISTORY: hemoptysis COMPARISON: None. TECHNIQUE: Contiguous axial images were obtained through the chest with intravenous contrast enhancement. Sagittal and coronal reconstructions were performed. IV contrast: 100 cc of Omni 350 Radiation dose (DLP): 433 mGy-cm. This CT exam was performed using one or more of the following dose reduction techniques: Automated exposure control, adjustment of the mA and/or kV according to patient size, and/or use of iterative reconstruction technique. FINDINGS: LUNGS: There is minimal bibasilar atelectasis and small pleural effusions. There is no focal infiltrate or lung mass. Mild emphysematous changes are seen in the upper lobes MEDIASTINUM: Unremarkable thoracic aorta. No aneurysm or dissection. Normal sized heart. Main pulmonary artery unremarkable. No vascular congestion. No lymphadenopathy. PLEURA: No pleural fluid. No pneumothorax. BONES: No fracture. No destructive lesion. UPPER ABDOMEN: Grossly unremarkable. OTHER FINDINGS: None. IMPRESSION: Unremarkable contrast enhanced CT of the chest.
--- NOTE | 2016-09-28 17:15 | CP.PCM.PN ---
Subjective - Date & Time of Evaluation Date of Evaluation: 09/28/16 Time of Evaluation: 09:45 - Subjective Subjective: Comfortable in bed, not in distress, no fevers overnight, no pain in the foot currently. Objective - Vital Signs/Intake and Output Vital Signs (last 24 hours): Temp Pulse Resp BP Pulse Ox 98.2 F 93 H 20 132/60 96 09/28/16 06:00 09/28/16 06:00 09/28/16 06:00 09/28/16 06:00 09/28/16 06:00 Intake and Output: 09/28/16 09/28/16 06:59 18:59 Intake Total 1240 Balance 1240 - Medications Medications: Current Medications Albuterol/Ipratropium (Duoneb 3 Mg/0.5 Mg (3 Ml) Ud) 3 ml IH [id number] ELISEO Last Admin: 09/28/16 15:31 Dose: 3 ml Cadexomer Iodine (Iodosorb 0.9%) 0 ea TOP DAILY ELISEO Last Admin: 09/28/16 15:33 Dose: Not Given Diphenhydramine HCl (Benadryl) 50 mg PO HS PRN PRN Reason: Insomnia Last Admin: 09/23/16 23:16 Dose: 50 mg Enoxaparin Sodium (Lovenox) 70 mg SC HS ELISEO PRN Reason: Protocol Last Admin: 09/27/16 21:27 Dose: 70 mg Home Med (Home Med) 1 unit OD ACB ELISEO Meropenem 1g/NS 100mL IVPB (Meropenem 1g/Ns 100ml Ivpb) 100 mls @ 100 mls/hr IVPB Q12H ELISEO PRN Reason: Protocol Stop: 10/02/16 06:01 Last Admin: 09/28/16 05:15 Dose: 100 mls/hr Oxycodone/Acetaminophen (Percocet 2.5/325 Mg Tab) 1 tab PO Q4H PRN PRN Reason: Pain, moderate (4-7) Last Admin: 09/27/16 17:20 Dose: 1 tab Potassium Chloride (K-Dur 20 Meq Er Tab) 20 meq PO 0800 [facility] Last Admin: 09/28/16 09:08 Dose: 20 meq Valsartan (Diovan) 320 mg PO DAILY ELISEO Last Admin: 09/28/16 09:08 Dose: 320 mg - Labs Labs: 09/26/16 10:35 09/28/16 11:45 PT 18.4 Seconds (9.9-11.8) H 09/22/16 13:20 INR 1.70 (0.93-1.08) H 09/22/16 13:20 APTT 34.2 Seconds (23.7-30.8) H 09/22/16 13:20 - Constitutional Appears: Non-toxic, No Acute Distress - Head Exam Head Exam: NORMAL INSPECTION - ENT Exam ENT Exam: Mucous Membranes Moist - Neck Exam Neck Exam: absent: Lymphadenopathy, Meningismus - Respiratory Exam Respiratory Exam: Decreased Breath Sounds - Cardiovascular Exam Cardiovascular Exam: +S1, +S2 - GI/Abdominal Exam GI & Abdominal Exam: Soft. absent: Tenderness Assessment and Plan - Assessment and Plan (Free Text) Plan: Assessment Right lateral malleolus gangrenous ulcer with associated skin and skin structure infection, R/O osteomyelitis S/P debridement POD #1 severe peripheral vascular disease HTN history of DVT of the left lower extremity Plan no evidence of MRSA - will d/c Vancomycin and continue Merrem; follow up OR pathology, findings, and cultures Will follow up Podiatry recommendations
--- NOTE | 2016-09-28 17:27 | PN ---
DATE: 09/28/2016 A 71-year-old female seen at bedside, status post 1 day excisional debridement of right arterial ankl e ulceration with substitute skin grafting. The patient states she is not having any pain in the aggie gical area. VITAL SIGNS: Reveal a temperature of 98.2, pulse rate of 93, blood pressure of 132/60, and respirato ry rate of 20. LABORATORY DATA: Reveal a white count of 8.5, hemoglobin of 13.1, hematocrit 38.4, platelet count of 237, and an ESR 16. Microbiology report reveals Enterobacter and Corynebacterium species growth. S urgical pathology reveals gangrenous necrosis and marked acute inflammation and mixed granulation tis loreta in surgical pathology. OBJECTIVE: Nonpalpable pedal pulses noted bilaterally. Surgical site on the right lateral ankle pre sents with skin graft substitute held intact with nathalie. There is noted to be minimal serous drain age. There is no malodor. There is no purulence. There are no signs of acute bacterial infection o r cellulitis. ASSESSMENT: Status post day 1 excisional debridement of right arterial ankle ulceration with substit [place] skin grafting. PLAN: The patient was examined. Dressing was removed and a dry sterile dressing was placed over ski n graft substitute, which is holding well. We will leave the dressing on and will not change until F riday if there is not excessive or drainage breakthrough. The patient was told she can ambulate and, in fact, ambulation was encouraged, with surgical shoe. Pedro Pablo Ya DPM cc: [id number] TT: 09/28/2016 17:26:19 Confirmation # [id number] Dictation # [id number] chris
--- NOTE | 2016-09-28 18:41 | PN ---
DATE: 09/28/2016 A 71-year-old black female with peripheral vascular disease, hypertension, COPD, tobacco abuse with a right lateral malleolar ulcer, status post stent in the right leg, re-angiogram by Dr. Silver Dennis w ith 3 percutaneous balloon angioplasties of the lesions in the right lower leg with good results wit h 1-vessel runoff. The patient was taken to surgery yesterday by Dr. Ya for debridement of the u lceration and possible preparation for a graft. The patient is doing well, complaining of pain in th e ankle, otherwise unremarkable. Still has a productive cough and some hemoptysis. The patient rece ntly had a chest x-ray that was negative. A CT of the chest is ordered because of the hemoptysis. T he patient was taken back to surgery today to complete the grafting procedure. CT showed minimal bib asilar atelectasis with small pleural effusions. No infiltrate or lung mass was found. There was mi ld emphysema in the upper lobes. The aorta was within normal limits, otherwise unremarkable. The pa tient will continue her course of antibiotics, bronchodilators and local wound care. Terrance Main MD cc: [id number] TT: 09/28/2016 18:40:23 Confirmation # [id number] Dictation # [id number] mn
[2016-09-28] MEDS: Enoxaparin 80 mg Syringe SC SCH (22:16)
[2016-09-29] MEDS: Albuterol-Ipratrop 3 mg / 0.5 (3 ml) UD IH SCH ×3 (03:30→11:44)
[2016-09-29] MEDS: Meropenem 1g/NS 100mL IVPB 100 ML IVPB SCH (06:05)
[2016-09-29] MEDS: Potassium Chloride 20 mEq ER Tab PO SCH (07:49)
--- NOTE | 2016-09-29 09:04 | PN ---
DATE: 09/29/2016 A 71-year-old black female with history of COPD, tobacco abuse, peripheral vascular disease, status p ost debridement and grafting by Dr. Ya on a right lateral malleolar ulcer. The patient is doing well post-debridement and grafting. Vital signs are stable. Repeat CT of the chest was negative for malignancy or for PE. The patient is doing well. We will discuss with Dr. Ya about possible discharge in the near [facility] re. Terrance Main MD cc: [id number] TT: 09/29/2016 09:03:19 Confirmation # [id number] Dictation # [id number] jn
[2016-09-29 09:26] VITALS: BP 131/62; PULSE 82; TEMP 98.3; O2SAT 98
--- NOTE | 2016-09-29 10:08 | CP.PCM.PN ---
<Rojelio Cortesa - Last Filed: 09/29/16 10:05> Subjective - Date & Time of Evaluation Date of Evaluation: 09/29/16 Time of Evaluation: 10:05 - Subjective Subjective: 71 y/o female seen at bedside with attending Dr. Tracey 2 days s/p debridement and graft application fo right lateral ankle ulceration. Patient denies any pain to the outside of her ankle. She denies any acute events overnight. Patient 's dressing remains c/d/i. Patient denies n/f/v/c/d/sob. Objective - Vital Signs/Intake and Output Vital Signs (last 24 hours): Temp Pulse Resp BP Pulse Ox 98.3 F 82 20 131/62 98 09/29/16 09:24 09/29/16 09:24 09/29/16 09:24 09/29/16 09:24 09/29/16 09:24 Intake and Output: 09/29/16 09/29/16 06:59 18:59 Intake Total 300 240 Balance 300 240 - Medications Medications: Current Medications Albuterol/Ipratropium (Duoneb 3 Mg/0.5 Mg (3 Ml) Ud) 3 ml IH [id number] ELISEO Last Admin: 09/29/16 07:47 Dose: 3 ml Cadexomer Iodine (Iodosorb 0.9%) 0 ea TOP DAILY ELISEO Last Admin: 09/29/16 09:23 Dose: Not Given Diphenhydramine HCl (Benadryl) 50 mg PO HS PRN PRN Reason: Insomnia Last Admin: 09/23/16 23:16 Dose: 50 mg Enoxaparin Sodium (Lovenox) 70 mg SC HS ELISEO PRN Reason: Protocol Last Admin: 09/28/16 22:16 Dose: 70 mg Home Med (Home Med) 1 unit OD ACB ELISEO Meropenem 1g/NS 100mL IVPB (Meropenem 1g/Ns 100ml Ivpb) 100 mls @ 100 mls/hr IVPB Q12H ELISEO PRN Reason: Protocol Stop: 10/02/16 06:01 Last Admin: 09/29/16 06:05 Dose: 100 mls/hr Oxycodone/Acetaminophen (Percocet 2.5/325 Mg Tab) 1 tab PO Q4H PRN PRN Reason: Pain, moderate (4-7) Last Admin: 09/27/16 17:20 Dose: 1 tab Potassium Chloride (K-Dur 20 Meq Er Tab) 20 meq PO 0800 ELISEO Last Admin: 09/29/16 07:49 Dose: 20 meq Valsartan (Diovan) 320 mg PO DAILY [facility] Last Admin: 09/29/16 09:19 Dose: 320 mg - Labs Labs: 09/26/16 10:35 09/28/16 11:45 PT 18.4 Seconds (9.9-11.8) H 09/22/16 13:20 INR 1.70 (0.93-1.08) H 09/22/16 13:20 APTT 34.2 Seconds (23.7-30.8) H 09/22/16 13:20 - Constitutional Appears: Well, Non-toxic, No Acute Distress - Extremities Exam Additional comments: Vasc: nonpalpable pedal pulses bilaterally, TG warm to warm, CFT < 3 sec to all digits, nonpitting edema to right leg neuro: grossly diminished derm: dressing to right ankle remains c/d/i, no drainage - Neurological Exam Neurological Exam: Alert, Awake, Oriented x3 - Psychiatric Exam Psychiatric exam: Normal Affect, Normal Mood Assessment and Plan - Assessment and Plan (Free Text) Assessment: 71 y/o female seen at bedside 2 days s/p right ankle wound debridement with graft application Plan: patient evaluated and seen at bedside with attending Dr. Tracey labs and vitals reviewed continue IV abx dressing left intact to right lower extremity, reinforced with additional tape MRI ordered for RLE to rule out OM podiatry will continue to monitor while patient remains in house <Rukhsana Tracey - Last Filed: 10/01/16 12:56> Objective - Vital Signs/Intake and Output Vital Signs (last 24 hours): Temp Pulse Resp BP Pulse Ox 98.3 F 82 20 131/62 98 09/29/16 09:24 09/29/16 09:24 09/29/16 09:24 09/29/16 09:24 09/29/16 09:24 - Labs Labs: 09/26/16 10:35 09/28/16 11:45 PT 18.4 Seconds (9.9-11.8) H 09/22/16 13:20 INR 1.70 (0.93-1.08) H 09/22/16 13:20 APTT 34.2 Seconds (23.7-30.8) H 09/22/16 13:20 Attending/Attestation - Attestation I have personally seen and examined this patient.: Yes I have fully participated in the care of the patient.: Yes I have reviewed all pertinent clinical information, including history, physical exam and plan: Yes
--- NOTE | 2016-09-29 13:06 | MRI ---
PROCEDURE: MRI of the right lower extremity without contrast HISTORY: rule out OM of distal fibula COMPARISON: TECHNIQUE: MRI of the right lower extremity was performed in multiple planes using multiple pulse sequences FINDINGS: There is a small bone infarct of the distal right tibia. There is no other marrow edema to suggest osteomyelitis. There is diffuse subcutaneous edema surrounding the lower leg. There is no muscular edema. There is no muscular hemorrhage or fluid collection. 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 No marrow edema to suggest osteomyelitis. Diffuse subcutaneous edema consistent with cellulitis or passive edema
--- NOTE | 2016-09-29 16:09 | CP.PCM.PN ---
Subjective - Date & Time of Evaluation Date of Evaluation: 09/29/16 Time of Evaluation: 10:00 - Subjective Subjective: Comfortable, not in distress, afebrile. Objective - Vital Signs/Intake and Output Vital Signs (last 24 hours): Temp Pulse Resp BP Pulse Ox 98.3 F 82 20 131/62 98 09/29/16 09:24 09/29/16 09:24 09/29/16 09:24 09/29/16 09:24 09/29/16 09:24 Intake and Output: 09/29/16 09/29/16 06:59 18:59 Intake Total 300 480 Balance 300 480 - Labs Labs: 09/26/16 10:35 09/28/16 11:45 PT 18.4 Seconds (9.9-11.8) H 09/22/16 13:20 INR 1.70 (0.93-1.08) H 09/22/16 13:20 APTT 34.2 Seconds (23.7-30.8) H 09/22/16 13:20 - Constitutional Appears: Non-toxic, No Acute Distress - Head Exam Head Exam: NORMAL INSPECTION - ENT Exam ENT Exam: Mucous Membranes Moist - Neck Exam Neck Exam: absent: Lymphadenopathy, Meningismus - Respiratory Exam Respiratory Exam: Decreased Breath Sounds - Cardiovascular Exam Cardiovascular Exam: +S1, +S2 - GI/Abdominal Exam GI & Abdominal Exam: Soft. absent: Tenderness Assessment and Plan - Assessment and Plan (Free Text) Plan: Assessment Right lateral malleolus gangrenous ulcer with associated skin and skin structure infection; S/P debridement POD #2; no evidence of osteomyelitis on MRI severe peripheral vascular disease HTN history of DVT of the left lower extremity Plan continue Merrem; reviewed OR pathology - patient should receive total of 7-10 days of antibiotics
--- NOTE | 2016-09-30 00:53 | DS ---
DISCHARGE SUMMARY: The patient was admitted on 09/22/2016, discharged on 09/29/2016. The patient is a 71-year-old black female with history of peripheral vascular disease, status post stent in the rig ht leg, COPD, tobacco abuse and mild hypertension. The patient admitted with a right lateral malleol ar ulcer, seen in consultation by Dr. Ya, had debridement and grafting done by Dr. Ya, receiv ed IV antibiotics for possible osteomyelitis. The patient did well. Also was seen by Dr. Silver kraus who did an angioplasty of the right leg, improving circulation. The patient was discharged home in improved condition to follow up as an outpatient in wound care clinic and also to continue p.o. anti biotics. FINAL DISCHARGE DIAGNOSES: Right lateral malleolar ulcer, ischemic ulcer, peripheral vascular diseas e, chronic obstructive pulmonary disease, tobacco abuse. Terrance Main MD cc: [id number] TT: 09/30/2016 00:52:42 id
== END 2016-09-29 15:17 | disposition home or self-care (01) | DRG 271 ==
LOC: ED 12:34 → ERH 14:14 → 3RNO 15:24 → 2RSO 09-24 14:48 → 3RNO 09-25 12:03
PROVIDERS: ADMIT Internal Medicine; ATTEND Internal Medicine
PROC: 04CK3ZZ Extirpation of Matter from Right Femoral Artery, Percutaneous Approach (ICD-10-PCS; 2016-09-24)
PROC: 047K3ZZ Dilation of Right Femoral Artery, Percutaneous Approach (ICD-10-PCS; 2016-09-24)
PROC: 047M3ZZ Dilation of Right Popliteal Artery, Percutaneous Approach (ICD-10-PCS; 2016-09-24)
PROC: 047R3ZZ Dilation of Right Posterior Tibial Artery, Percutaneous Approach (ICD-10-PCS; 2016-09-24)
PROC: 04CM3ZZ Extirpation of Matter from Right Popliteal Artery, Percutaneous Approach (ICD-10-PCS; 2016-09-24)
PROC: 0HRMXK3 Replacement of Right Foot Skin with Nonautologous Tissue Substitute, Full Thickness, External Approach (ICD-10-PCS; 2016-09-27)
PROC: 0JDQ0ZZ Extraction of Right Foot Subcutaneous Tissue and Fascia, Open Approach (ICD-10-PCS; 2016-09-27)
PROC: 0JBQ0ZZ Excision of Right Foot Subcutaneous Tissue and Fascia, Open Approach (ICD-10-PCS; principal; 2016-09-27 07:30)
DX: I73.9 Peripheral vascular disease, unspecified (principal); I96 Gangrene, not elsewhere classified; L97.319 Non-pressure chronic ulcer of right ankle with unspecified severity; T82.856A Stenosis of peripheral vascular stent, initial encounter; J44.9 Chronic obstructive pulmonary disease, unspecified; I48.2 Chronic atrial fibrillation; Y83.8 Other surgical procedures as the cause of abnormal reaction of the patient, or of later complication, without mention of misadventure at the time of the procedure; B96.89 Other specified bacterial agents as the cause of diseases classified elsewhere; Z86.718 Personal history of other venous thrombosis and embolism; Z72.0 Tobacco use; Z79.01 Long term (current) use of anticoagulants; I10 Essential (primary) hypertension